=== PATIENT | male | born 1965 | race Caucasian/White ===

== ENCOUNTER 2017-05-13 11:25 | Outpatient (RCR) | payer OTHER ==
[2017-05-06 12:10] VITALS: BP 145/93
[2017-05-07 14:29] VITALS: BP 144/96
[2017-05-07 14:39] LABS: PLATELET COUNT, AUTOMATED 215 K/uL (150-450)
--- NOTE | 2017-05-07 18:50 | ONCOLOGY CONSULTATION ---
EVENT DATE: May 06, 2017 REFERRING PHYSICIAN Imelda Bauer MD REASON FOR CONSULTATION Evaluation and management of erythrocytosis in a patient on testosterone supplementation. HISTORY OF PRESENT ILLNESS Patient is a 52-year-old male who has a history of low testosterone level on testosterone supplement, hypothyroidism, sleep apnea and squamous cell carcinoma. Patient was followed by Dr. Bauer and the patient was found to have high H and H. His CBC showed hemoglobin of 18.8 and hematocrit of 56.1. Patient was donating blood in the past and was found to have rising H and H despite the fact he has phlebotomy, and for this reason the patient was referred for evaluation and management. PAST MEDICAL HISTORY 1. Sleep apnea. 2. Low testosterone level. 3. Hypothyroidism. 4. Squamous cell carcinoma. PAST SURGICAL HISTORY 1. Back surgery in 1999. 2. Tonsillectomy as a child. FAMILY HISTORY Mother with glioblastoma multiforme. SOCIAL HISTORY Patient is with two sons. He works as a real estate salesperson. He drinks about four to five drinks per week, but denies any abuse of tobacco or illicit drugs. CURRENT MEDICATIONS 1. Levothyroxine 88 mcg daily. 2. Wellbutrin XL 150 mg daily. 3. Paxil 10 mg daily. 4. Aspirin 81 mg daily. 5. [place]-3 500 mg capsule 1000 mg daily. 6. Multivitamin one tablet daily. 7. Vitamin D3 2000 units daily. 8. Magnesium oxide 400 mg daily. 9. Co-Q10 100 mg daily. 10. Ranitidine 150 mg twice daily. 11. AndroGel pump 20.25 mg per actuation transdermal gel four pumps once daily. ALLERGIES No known drug allergies. REVIEW OF SYSTEMS CONSTITUTIONAL: No appetite or weight change. No fever, chills or sweating. No recent infection. HEENT: Ears: No tinnitus or hearing problem. Nose: No nasal discharge or epistaxis. Throat: No sore throat or mouth ulcers. Eyes: No diplopia or visual changes. RESPIRATORY: No shortness of breath. No cough, expectoration or hemoptysis. CARDIOVASCULAR: No chest pain, orthopnea, or paroxysmal nocturnal dyspnea (PND) . No edema. No palpitations. GASTROINTESTINAL: No nausea or vomiting. No diarrhea or constipation. No change in bowel movements. No heartburn or swallowing difficulties. No abdominal pain. No jaundice. No hematemesis, melena or rectal bleeding. GENITOURINARY: No hematuria or dysuria. MUSCULOSKELETAL: No pain in the muscles, joints or bones. NEUROLOGICAL: No tingling or numbness in the hands or feet. No headaches or convulsions. HEMATOLOGIC/LYMPHATIC: No bleeding or easy bruising. No weakness or fatigue. No enlarged lymph nodes. SKIN: No skin rash or lumps. PSYCHIATRIC: No anxiety or depression. PHYSICAL EXAMINATION GENERAL: Looks stable. Well-developed, well-nourished, and in no acute distress. VITAL SIGNS: Blood pressure 145/93, pulse 72 per minute, respirations 16 per minute, temperature 98.2, pulse ox 92% on room air. HEENT: Head: Atraumatic. No sinus tenderness to palpation. Eyes: No icterus or conjunctivitis. Mouth and throat: No oral thrush or mucositis. NECK: Supple. No cervical or supraclavicular lymphadenopathy. LUNGS: Clear to auscultation and percussion bilaterally. HEART: Regular rate and rhythm. No gallops, murmurs, clicks or rubs. ABDOMEN: Soft and lax. No tenderness. No hepatosplenomegaly. No masses. EXTREMITIES: No cyanosis, clubbing or edema. LYMPHATICS: No peripheral lymphadenopathy. NEUROLOGICAL: Conscious, alert and oriented times three. No focal motor or sensory deficits. PSYCHIATRIC: Mood and affect appear normal. SKIN: No skin rash, bruise or purpuric eruption. ASSESSMENT 1. Erythrocytosis could be primary due to polycythemia vera versus secondary due to hypoxemia of any cause or high ferritin due to ferritin producing tumors like hepatoma. From his history, patient could have secondary erythrocytosis due to the testosterone supplement, and as per patient the testosterone supplement makes a difference with improving his energy and stamina. I am planning to check his CBC, JAK2 mutation analysis and and erythropoietin level. If the JAK2 mutation will come back negative then testosterone supplement is most probably the underlining cause, together with the sleep apnea which the patient has also. If this is the case, I am planning to do a phlebotomy whenever his hematocrit is above 55%, but if he will prove to have polycythemia vera then we will do the phlebotomy if the hematocrit is above 45%. As the patient cannot stop testosterone supplement we will do the phlebotomy whenever it is needed, if the hematocrit is above 55%. We will check his blood today. I will see him in a week and we will decide about further management at that time. 2. Low testosterone on testosterone supplement. 3. Hypothyroidism on thyroid supplement. 4. Sleep apnea, on oxygen. PLAN 1. CBC. 2. Erythropoietin level. 3. JAK2 mutation analysis. 4. Patient to return in one week for further evaluation and management. 5. Consider phlebotomy if hematocrit above 55% and secondary erythrocytosis, or above 45% and polycythemia vera. 6. Continue baby aspirin 81 mg daily. 7. Patient to contact us for any new concern or complaints. TAMERAD
[~2017-05-13 11:25] MED LIST: AMOX-559 PO; ASPI-1471 PO; BUPR-472 PO; CHOL200022 PO; LEVO75TA73 PO; LOR05 PO; MAGN400C PO; MILK500C2 PO; MULT-885 PO; NO MEDS; OMEG500C5 PO; PARO-242 PO; RANI-318 PO; UBID100C9 PO; VITA-324 PO; asprin PO
[2017-05-13 11:30] VITALS: BP 123/97
[2017-05-13 11:43] LABS: PLATELET COUNT, AUTOMATED 212 K/uL (150-450)
== END 2017-06-11 09:02 | disposition home or self-care (01) ==
LOC: SPU 11:25
PROVIDERS: ATTEND Internal Medicine Hematology
DX: D75.1 Secondary polycythemia (principal); E29.1 Testicular hypofunction; E03.9 Hypothyroidism, unspecified; G47.30 Sleep apnea, unspecified; Z79.82 Long term (current) use of aspirin; Z79.899 Other long term (current) drug therapy
CPT/HCPCS: 36415; 81270; 81403; 82668; 85025; 99202

== ENCOUNTER 2017-10-01 13:55 | Outpatient (RCR) | payer OTHER ==
[2017-08-20 12:35] VITALS: BP 137/88
[2017-08-20 12:50] LABS: PLATELET COUNT, AUTOMATED 214 K/uL (150-450)
--- NOTE | 2017-08-20 17:30 | ONCOLOGY FOLLOW UP NOTE ---
EVENT DATE: August 20, 2017 DIAGNOSES 1. 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 2. Hypothyroidism. 3. Sleep apnea. CHIEF COMPLAINT Patient is here today for followup of his erythrocytosis. HEMATOLOGY HISTORY Patient is a 52-year-old male who has a history of low testosterone level on testosterone supplement, hypothyroidism, sleep apnea and squamous cell carcinoma. Patient was followed by Dr. Bauer and the patient was found to have high H and H. His CBC showed hemoglobin of 18.8 and hematocrit of 56.1. Patient was donating blood in the past and was found to have rising H and H despite the fact he has phlebotomy, and for this reason the patient was referred for evaluation and management. JAK2 mutation analysis for V617F mutation and Exon 12 mutation came back negative. Erythropoietin level was normal at 20, consistent with secondary rather than primary polycythemia. HISTORY OF PRESENT ILLNESS Patient is here today for followup of his secondary erythrocytosis. He is doing very well currently and he is totally asymptomatic. PAST MEDICAL HISTORY 1. Sleep apnea. 2. Low testosterone level. 3. Hypothyroidism. 4. Squamous cell carcinoma. PAST SURGICAL HISTORY 1. Back surgery in 1999. 2. Tonsillectomy as a child. FAMILY HISTORY Mother with glioblastoma multiforme. SOCIAL HISTORY Patient is with two sons. He works as a commercial real estate manager. He drinks about four to five drinks per week, but denies any abuse of tobacco or illicit drugs. CURRENT MEDICATIONS 1. Levothyroxine 88 mcg daily. 2. Wellbutrin XL 150 mg daily. 3. Paxil 10 mg daily. 4. Aspirin 81 mg daily. 5. [place]-3 500 mg capsule 1000 mg daily. 6. Multivitamin one tablet daily. 7. Vitamin D3 2000 units daily. 8. Magnesium oxide 400 mg daily. 9. Co-Q10 100 mg daily. 10. Ranitidine 150 mg twice daily. 11. AndroGel pump 20.25 mg per actuation transdermal gel four pumps once daily. ALLERGIES No known drug allergies. REVIEW OF SYSTEMS CONSTITUTIONAL: No appetite or weight change. No fever, chills or sweating. No recent infection. HEENT: Ears: No tinnitus or hearing problem. Nose: No nasal discharge or epistaxis. Throat: No sore throat or mouth ulcers. Eyes: No diplopia or visual changes. RESPIRATORY: No shortness of breath. No cough, expectoration or hemoptysis. CARDIOVASCULAR: No chest pain, orthopnea, or paroxysmal nocturnal dyspnea (PND) . No edema. No palpitations. GASTROINTESTINAL: No nausea or vomiting. No diarrhea or constipation. No change in bowel movements. No heartburn or swallowing difficulties. No abdominal pain. No jaundice. No hematemesis, melena or rectal bleeding. GENITOURINARY: No hematuria or dysuria. MUSCULOSKELETAL: No pain in the muscles, joints or bones. NEUROLOGICAL: No tingling or numbness in the hands or feet. No headaches or convulsions. HEMATOLOGIC/LYMPHATIC: No bleeding or easy bruising. No weakness or fatigue. No enlarged lymph nodes. SKIN: No skin rash or lumps. PSYCHIATRIC: No anxiety or depression. PHYSICAL EXAMINATION GENERAL: Looks stable. Well-developed, well-nourished, and in no acute distress. VITAL SIGNS: Blood pressure 137/88, pulse 78 per minute, respirations 16 per minute, temperature 98.2, pulse ox 92% on room air. HEENT: Head: Atraumatic. No sinus tenderness to palpation. Eyes: No icterus or conjunctivitis. Mouth and throat: No oral thrush or mucositis. NECK: Supple. No cervical or supraclavicular lymphadenopathy. LUNGS: Clear to auscultation and percussion bilaterally. HEART: Regular rate and rhythm. No gallops, murmurs, clicks or rubs. ABDOMEN: Soft and lax. No tenderness. No hepatosplenomegaly. No masses. EXTREMITIES: No cyanosis, clubbing or edema. LYMPHATICS: No peripheral lymphadenopathy. NEUROLOGICAL: Conscious, alert and oriented times three. No focal motor or sensory deficits. PSYCHIATRIC: Mood and affect appear normal. SKIN: No skin rash, bruise or purpuric eruption. DIAGNOSTIC DATA JAK2 mutation for V617F and Exon 12 mutations came back negative. Erythropoietin level was 20. CBC showed white count 4.5, hemoglobin 17.7, hematocrit 52.2, platelets 212,000. His CBC for today is pending. ASSESSMENT 1. Erythrocytosis is secondary in nature given that JAK2 mutation for V617F mutation and Exon 12 mutation came back negative. His erythropoietin level was also normal at 20. Those results are consistent with secondary rather than primary polycythemia, with his testosterone supplement the most underlying cause for his erythrocytosis. I am planning to continue followup. I will check his blood count every six weeks, and I will phlebotomize 500 mL of blood if his hematocrit is above 55%. I am planning to see him again in three months from now with CBC. 2. Low testosterone on testosterone supplement. 3. Hypothyroidism on thyroid supplement. 4. Sleep apnea, on oxygen. PLAN 1. Continue followup. 2. Patient to return in three months with CBC. 3. Check CBC every six weeks. 4. Consider phlebotomy if hematocrit above 55%. 5. Patient to contact us for any new concerns or complaints. YULIA
[~2017-10-01 13:55] MED LIST changes: +CHOL200018 PO; -CHOL200022 PO
[2017-10-01 14:35] LABS: PLATELET COUNT, AUTOMATED 222 K/uL (150-450)
[2017-10-01 14:55] VITALS: BP 144/106
== END 2017-11-15 ==
LOC: SPU 13:55
PROVIDERS: ATTEND Internal Medicine Hematology
DX: D75.1 Secondary polycythemia (principal); E29.1 Testicular hypofunction; E03.9 Hypothyroidism, unspecified; G47.30 Sleep apnea, unspecified; Z79.82 Long term (current) use of aspirin; Z79.899 Other long term (current) drug therapy
CPT/HCPCS: 36415; 85025; 99212

== ENCOUNTER → 2017-10-07 | Outpatient (CLI) | payer OTHER ==
[~2017-10-07] MED LIST changes: -CHOL200018 PO; +CHOL200022 PO
--- NOTE | 2017-10-07 14:17 | RADIOLOGY IMAGING REPORT ---
FACILITY: [facility] - [place] PATIENT NAME: Cosme Watson : 1965 MR: [id number] V: [id number] EXAM DATE: ORDERING PHYSICIAN: CARLINE MOREJON TECHNOLOGIST: Location: [facility] [place] Patient: Cosme Watson : 1965 Visit/Account:[id number] Date of Sevice: 10/07/2017 EXAMINATION: Ultrasound thyroid HISTORY: Hypothyroidism, thyroid cyst. COMPARISON: Thyroid ultrasound from 03/12/2016. FINDINGS: Thyroid size: Right lobe: 4.2 x 1.3 x 1.5 cm Left lobe: 3.6 x 1.2 x 1.6 cm Isthmus: 0.3 cm Thyroid heterogeneity: Mildly heterogeneous parenchyma. Thyroid vascularity: Normal. Thyroid nodules: Right lobe: * A subcentimeter area measured as a nodule does not appear to be a discrete nodule in both planes. This appears to be mildly heterogeneous parenchyma. Left lobe: * None discrete. Isthmus: * None discrete. Additional findings: None. IMPRESSION: 1. Mildly heterogeneous thyroid could be due to chronic thyroiditis. 2. No discrete thyroid nodule. REFERENCE: 2015 [place] [employer] Management Guidelines for Adult Patients with Thyroid Nodules and D ifferentiated Thyroid Cancer: The [place] [employer] Guidelines Task Force on Thyroid Nodul es and Differentiated Thyroid Cancer. SONOGRAPHIC PATTERNS: * Benign: Purely cystic nodules (no solid component); estimated risk of malignancy <1 percent; no bi opsy recommended. * Very Low Suspicion: Spongiform or partially cystic nodules without any of the sonographic features described in low, intermediate, or high suspicion patterns; estimated risk of malignancy <3 percent; consider FNA at > 2 cm (Observation without FNA is also a reasonable option). * Low Suspicion: Isoechoic or hyperechoic solid nodule, or partially cystic nodule with eccentric so lid areas, without microcalcification, irregular margin or ETE (extra-thyroidal extension), or taller than wide shape; estimated risk of malignancy 5-10 percent; recommend FNA at >1.5 cm. * Intermediate Suspicion: Hypoechoic solid nodule with smooth margins without microcalcifications, E TE (extra-thyroidal extension), or taller than wide shape; estimated risk of malignancy 10-20 percent ; recommend FNA at > 1 cm. * High Suspicion: Solid hypoechoic nodule or solid hypoechoic component of a partially cystic nodule with one or more of the following features: irregular margins (infiltrative, microlobulated), microc alcifications, taller than wide shape, rim calcifications with small extrusive soft tissue component, evidence of ETE (extra-thyroidal extension); estimated risk of malignancy >70-90 percent; recommend FNA at > 1 cm. NOTES: * Although a sonographically suspicious subcentimeter thyroid nodule without evidence of extrathyroi dottie extension or sonographically suspicious lymph nodes may be observed with close sonographic follow -up rather than pursuing immediate FNA, patient age and preference may modify decision-making. * A > 50% interval increase in nodule volume and/or development of new suspicious sonographic featur es are felt to be a valid reasons for potential re-aspiration of a nodule previously shown to have be nign FNA cytology. Report Dictated By: Nita Chavez MD at 10/07/2017 2:11 PM Report E-Signed By: Nita Chavez MD at 10/07/2017 2:13 PM WSN:[id number]
== END ==
LOC: US 01:09
PROVIDERS: ATTEND Family Medicine
DX: E05.00 Thyrotoxicosis with diffuse goiter without thyrotoxic crisis or storm (principal)
CPT/HCPCS: 76536

== ENCOUNTER 2018-02-03 08:50 | Outpatient (RCR) | payer OTHER ==
[2017-12-10 12:36] VITALS: BP 143/103
[2017-12-10 12:55] LABS: PLATELET COUNT, AUTOMATED 243 K/uL (150-450)
--- NOTE | 2017-12-10 23:05 | ONCOLOGY FOLLOW UP NOTE ---
EVENT DATE: December 10, 2017 DIAGNOSES 1. 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 2. Hypothyroidism. 3. Sleep apnea. CHIEF COMPLAINT Patient is here today for followup of his erythrocytosis. HEMATOLOGY HISTORY Patient is a 52-year-old male who has a history of low testosterone level, on testosterone supplement, hypothyroidism, sleep apnea, and squamous cell carcinoma. Patient was followed by Dr. Bauer, and the patient was found to have high H and H. His CBC showed hemoglobin of 18.8 and hematocrit of 56.1. Patient was donating blood in the past and was found to have rising H and H despite the fact he had phlebotomy, and for this reason, the patient was referred for evaluation and management. JAK2 mutation analysis for V617F mutation and exon 12 mutation came back negative. Erythropoietin level was normal at 20, consistent with secondary rather than primary polycythemia. HISTORY OF PRESENT ILLNESS Patient is here today for followup of his secondary erythrocytosis due to testosterone supplement. He is doing fine currently, and he is totally asymptomatic. PAST MEDICAL HISTORY 1. Sleep apnea. 2. Low testosterone level. 3. Hypothyroidism. 4. Squamous cell carcinoma. PAST SURGICAL HISTORY 1. Back surgery in 1999. 2. Tonsillectomy as a child. FAMILY HISTORY Mother with glioblastoma multiforme. SOCIAL HISTORY Patient is with two sons. He works as a real estate executive assistant. He drinks about four to five drinks per week, but denies any abuse of tobacco or illicit drugs. CURRENT MEDICATIONS 1. Levothyroxine 88 mcg daily. 2. Wellbutrin XL 150 mg daily. 3. Paxil 10 mg daily. 4. Aspirin 81 mg daily. 5. [place]-3, 500 mg capsule, 1000 mg daily. 6. Multivitamin one tablet daily. 7. Vitamin D3, 2000 units daily. 8. Magnesium oxide 400 mg daily. 9. Co-Q10, 100 mg daily. 10. Ranitidine 150 mg twice daily. 11. AndroGel pump 20.25 mg per actuation transdermal gel, four pumps once daily. ALLERGIES No known drug allergies. REVIEW OF SYSTEMS CONSTITUTIONAL: No appetite or weight change. No fever, chills, or sweating. No recent infection. HEENT: Ears: No tinnitus or hearing problem. Nose: No nasal discharge or epistaxis. Throat: No sore throat or mouth ulcers. Eyes: No diplopia or visual changes. RESPIRATORY: No shortness of breath. No cough, expectoration, or hemoptysis. CARDIOVASCULAR: No chest pain, orthopnea, or paroxysmal nocturnal dyspnea (PND). No edema. No palpitations. GASTROINTESTINAL: No nausea or vomiting. No diarrhea or constipation. No change in bowel movements. No heartburn or swallowing difficulties. No abdominal pain. No jaundice. No hematemesis, melena, or rectal bleeding. GENITOURINARY: No hematuria or dysuria. MUSCULOSKELETAL: No pain in the muscles, joints, or bones. NEUROLOGICAL: No tingling or numbness in the hands or feet. No headaches or convulsions. HEMATOLOGIC/LYMPHATIC: No bleeding or easy bruising. No weakness or fatigue. No enlarged lymph nodes. SKIN: No skin rash or lumps. PSYCHIATRIC: No anxiety or depression. PHYSICAL EXAMINATION GENERAL: Looks stable. Well developed, well nourished, and in no acute distress. VITAL SIGNS: Blood pressure 143/103, pulse 73 per minute, respirations 16 per minute, temperature 98.1, pulse ox 91% on room air. HEENT: Head: Atraumatic. No sinus tenderness to palpation. Eyes: No icterus or conjunctivitis. Mouth and Throat: No oral thrush or mucositis. NECK: Supple. No cervical or supraclavicular lymphadenopathy. LUNGS: Clear to auscultation and percussion bilaterally. HEART: Regular rate and rhythm. No gallops, murmurs, clicks, or rubs. ABDOMEN: Soft and lax. No tenderness. No hepatosplenomegaly. No masses. EXTREMITIES: No cyanosis, clubbing, or edema. LYMPHATICS: No peripheral lymphadenopathy. NEUROLOGICAL: Conscious, alert, and oriented times three. No focal motor or sensory deficits. PSYCHIATRIC: Mood and affect appear normal. SKIN: No skin rash, bruise, or purpuric eruption. DIAGNOSTIC DATA CBC showed white count 5000, hemoglobin 17.6, hematocrit 53.5, platelet count 243,000. ASSESSMENT 1. Erythrocytosis, secondary in nature given that JAK2 mutation for V617F mutation and the exon 12 mutation came back negative. His erythropoietin level was also normal at 20. His erythrocytosis is most probably due to testosterone supplement. He had his last phlebotomy about two months ago, and his current hematocrit is 53.5%. I am planning to proceed with phlebotomy for hematocrit above 55%. I am planning to repeat his CBC very two months, and I will see him in four months from now. 2. Low testosterone, on testosterone supplement. 3. Hypothyroidism, on thyroid supplement. 4. Sleep apnea, on oxygen. PLAN 1. Continue followup. 2. Patient to return in four months with CBC. 3. Check CBC every two months. 4. Phlebotomize 500 mL of blood if hematocrit above 55%. 5. Patient to contact us for any new concerns or complaints. YULIA
[~2018-02-03 08:50] MED LIST changes: +CHOL200018 PO; -CHOL200022 PO; +INFLUENZA VIRUS VAC 0.5ML SYR IM ONLY ONE
[2018-02-03 08:57] VITALS: BP 167/105
[2018-02-03 09:10] LABS: PLATELET COUNT, AUTOMATED 203 K/uL (150-450)
== END 2018-02-17 ==
LOC: SPU 08:50
PROVIDERS: ATTEND Internal Medicine Hematology
DX: D75.1 Secondary polycythemia (principal); E03.9 Hypothyroidism, unspecified; G47.30 Sleep apnea, unspecified; Z79.82 Long term (current) use of aspirin; Z79.899 Other long term (current) drug therapy; E29.1 Testicular hypofunction; Z23 Encounter for immunization
CPT/HCPCS: 36415; 85025; 90471; 90674; 99212

== ENCOUNTER → 2018-03-17 | Outpatient (CLI) | payer OTHER ==
[~2018-03-17] MED LIST changes: -INFLUENZA VIRUS VAC 0.5ML SYR IM ONLY ONE
== END ==
LOC: LAB 08:43
PROVIDERS: ATTEND Urology
DX: R97.20 Elevated prostate specific antigen [PSA] (principal)
CPT/HCPCS: 36415; 84154

== ENCOUNTER 2018-03-30 15:42 | Outpatient (RCR) | payer OTHER | END 2018-03-31 17:31 | disposition home or self-care (01) | LOC: SPU 15:42 | PROVIDERS: ATTEND Internal Medicine Hematology | DX: D75.1 Secondary polycythemia (principal); E03.9 Hypothyroidism, unspecified; G47.30 Sleep apnea, unspecified; Z79.82 Long term (current) use of aspirin; Z79.899 Other long term (current) drug therapy; E29.1 Testicular hypofunction; Z23 Encounter for immunization ==

== ENCOUNTER 2018-04-07 12:37 | Outpatient (RCR) | payer OTHER ==
[2018-04-01 09:04] VITALS: BP 159/111
[2018-04-01 09:21] LABS: PLATELET COUNT, AUTOMATED 202 K/uL (150-450)
[2018-04-07 12:50] VITALS: BP 149/109
[2018-04-07 13:06] LABS: PLATELET COUNT, AUTOMATED 214 K/uL (150-450)
[2018-04-07 13:40] VITALS: BP 138/111
--- NOTE | 2018-04-07 14:19 | [facility] ONCOLOGY NOTE ---
EVENT DATE: April 07, 2018 DIAGNOSES 1. 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 2. Hypothyroidism. 3. Sleep apnea. CHIEF COMPLAINT Patient is here today for followup of his secondary erythrocytosis. HEMATOLOGY HISTORY Patient is a 53-year-old male who has a history of low testosterone level, on testosterone supplement, hypothyroidism, sleep apnea, and squamous cell carcinoma. Patient was followed by Dr. Bauer, and the patient was found to have high H and H. His CBC showed hemoglobin of 18.8 and hematocrit of 56.1. Patient was donating blood in the past and was found to have rising H and H despite the fact he had phlebotomy, and for this reason, the patient was referred for evaluation and management. JAK2 mutation analysis for V617F mutation and exon 12 mutation came back negative. Erythropoietin level was normal at 20, consistent with secondary rather than primary polycythemia. HISTORY OF PRESENT ILLNESS Patient is here today for followup of his secondary erythrocytosis due to testosterone supplement. He is doing fine currently, and he is totally asymptomatic, but patient was found to have high blood pressure today and was advised to see his primary care provider for that. PAST MEDICAL HISTORY 1. Sleep apnea. 2. Low testosterone level. 3. Hypothyroidism. 4. Squamous cell carcinoma. PAST SURGICAL HISTORY 1. Back surgery in 1999. 2. Tonsillectomy as a child. FAMILY HISTORY Mother with glioblastoma multiforme. SOCIAL HISTORY Patient is with two sons. He works as a real estate leasing agent. He drinks about four to five drinks per week, but denies any abuse of tobacco or illicit drugs. CURRENT MEDICATIONS 1. Levothyroxine 88 mcg daily. 2. Wellbutrin XL 150 mg daily. 3. Paxil 10 mg daily. 4. Aspirin 81 mg daily. 5. [place]-3, 500 mg capsule, 1000 mg daily. 6. Multivitamin one tablet daily. 7. Vitamin D3, 2000 units daily. 8. Magnesium oxide 400 mg daily. 9. Co-Q10, 100 mg daily. 10. Ranitidine 150 mg twice daily. 11. AndroGel pump 20.25 mg per actuation transdermal gel, four pumps once daily. ALLERGIES No known drug allergies. REVIEW OF SYSTEMS CONSTITUTIONAL: No appetite or weight change. No fever, chills, or sweating. No recent infection. HEENT: Ears: No tinnitus or hearing problem. Nose: No nasal discharge or epistaxis. Throat: No sore throat or mouth ulcers. Eyes: No diplopia or visual changes. RESPIRATORY: No shortness of breath. No cough, expectoration, or hemoptysis. CARDIOVASCULAR: No chest pain, orthopnea, or paroxysmal nocturnal dyspnea (PND). No edema. No palpitations. GASTROINTESTINAL: No nausea or vomiting. No diarrhea or constipation. No change in bowel movements. No heartburn or swallowing difficulties. No abdominal pain. No jaundice. No hematemesis, melena, or rectal bleeding. GENITOURINARY: No hematuria or dysuria. MUSCULOSKELETAL: No pain in the muscles, joints, or bones. NEUROLOGICAL: No tingling or numbness in the hands or feet. No headaches or convulsions. HEMATOLOGIC/LYMPHATIC: No bleeding or easy bruising. No weakness or fatigue. No enlarged lymph nodes. SKIN: No skin rash or lumps. PSYCHIATRIC: No anxiety or depression. PHYSICAL EXAMINATION GENERAL: Looks stable. Well developed, well nourished, and in no acute distress. VITAL SIGNS: Blood pressure 149/109, pulse 68 per minute, respirations 16 per minute, temperature 99, pulse ox 94% on room air. HEENT: Head: Atraumatic. No sinus tenderness to palpation. Eyes: No icterus or conjunctivitis. Mouth and Throat: No oral thrush or mucositis. NECK: Supple. No cervical or supraclavicular lymphadenopathy. LUNGS: Clear to auscultation and percussion bilaterally. HEART: Regular rate and rhythm. No gallops, murmurs, clicks, or rubs. ABDOMEN: Soft and lax. No tenderness. No hepatosplenomegaly. No masses. EXTREMITIES: No cyanosis, clubbing, or edema. LYMPHATICS: No peripheral lymphadenopathy. NEUROLOGICAL: Conscious, alert, and oriented times three. No focal motor or sensory deficits. PSYCHIATRIC: Mood and affect appear normal. SKIN: No skin rash, bruise, or purpuric eruption. DIAGNOSTIC DATA CBC showed white count 5.5, hemoglobin 18.1, hematocrit 55.5%, platelet count 214,000. ASSESSMENT 1. Erythrocytosis, secondary in nature given that his JAK2 mutation for V617F mutation and the exon 12 mutation came back negative. Erythropoietin level was also normal at 20. His erythrocytosis is thought to be due to his testosterone supplement. His current hematocrit is 55.5%, and the patient will have a phlebotomy for that. I am planning to see him in six months, but I will check his blood count in three months from now. 2. Low testosterone, on testosterone supplement. 3. Hypothyroidism, on thyroid supplement. 4. Sleep apnea, on oxygen. PLAN 1. Continue followup. 2. Patient to return in six months with CBC. 3. Check CBC every three months. 4. Phlebotomize 500 mL of blood if hematocrit is at or above 55%. 5. Patient to contact us for any new concerns or complaints. YULIA
== END 2018-06-30 ==
LOC: SPU 12:37
PROVIDERS: ATTEND Internal Medicine Hematology
DX: D75.1 Secondary polycythemia (principal); E03.9 Hypothyroidism, unspecified; G47.30 Sleep apnea, unspecified; Z79.899 Other long term (current) drug therapy; E29.1 Testicular hypofunction
CPT/HCPCS: 36415; 85025; 99195; 99212

== ENCOUNTER 2018-06-05 18:25 | Emergency (ER) | payer OTHER ==
[2018-06-05 18:35] VITALS: BP 147/96
--- NOTE | 2018-06-05 18:44 | ER Report ---
History and Physical Time Seen By MD: 18:30 HPI/ROS CHIEF COMPLAINT: Left thumb lac HISTORY OF PRESENT ILLNESS: Pt was cutting his easter ham and accidentally hit his left thumb at pip joint. 1cm laceration Pt tried pressure bandage but could not stop the bleeding. Pt tried surgical glue at home but also could not stop the bleeding. Came to the ED for closure. PT has full range of motion. No numbness. PT is right handed REVIEW OF SYSTEMS: Constitutional: No fever, no chills. Eyes: No discharge. ENT: No sore throat. Cardiovascular: No chest pain, no palpitations. Respiratory: No cough, no shortness of breath. Gastrointestinal: No abdominal pain, no vomiting. Genitourinary: No hematuria. Musculoskeletal: No back pain. Skin: No rashes + finger laceration Neurological: No headache. Allergies: Coded Allergies: No Known Drug Allergies (Verified , 06/05/18) Home Meds Reported Medications Levothyroxine Sodium (LEVOTHYROXINE SODIUM) 75 Mcg Tablet, 88 MCG PO QDAY, TAB 04/27/16 Bupropion Hcl (WELLBUTRIN XL) 150 Mg Tab.er.24h, 150 MG PO QDAY, TAB 04/27/16 Paroxetine Hcl (PAXIL) 10 Mg Tablet, 10 MG PO QDAY 04/27/16 Aspirin (ASPIR 81) 81 Mg Tablet.dr, 81 MG PO HS, TAB 01/25/14 [place]-3 Fatty Acids (FISH OIL) 500 Mg Capsule.dr, 1000 MG PO DAILY 09/20/13 Multivitamin (DAILY VITAMIN) 1 Each Tablet, 1 EACH PO DAILY 09/20/13 Cholecalciferol (Vitamin D3) (VITAMIN D) 2,000 Unit Tablet, 2000 UNIT PO DAILY 09/20/13 Magnesium Oxide (MAGNESIUM) 400 Mg Capsule, 400 MG PO DAILY, CAPSULE 09/20/13 Ubidecarenone (CO Q-10) 100 Mg Capsule, 100 MG PO DAILY, CAPSULE 09/20/13 Ranitidine Hcl (RANITIDINE HCL) 150 Mg Tablet, 150 MG PO BID 09/20/13 Past Medical/Surgical History Pmhx: polycythemia, Sleep apnea, Low testosterone level, Hypothyroidism, Squamous cell carcinoma. Pshx: tonsilectomy Hx Smoking: No Smoking Status: Never Smoker Hx Alcohol Use: Yes (4 drinks per a week) Constitutional Vital Sign - Last 24 Hours 06/05/18 18:35 Temp 99.1 Pulse 90 Resp 16 B/P (MAP) 147/96 Pulse Ox 91 O2 Delivery Room Air Physical Exam General Appearance: The patient is alert, has no immediate need for airway pr otection and no signs of toxicity. Respiratory: There are no retractions, lungs are clear to auscultation. Cardiovascular: Regular rate and rhythm. pulses are equal and symmetrical Neurological: Cranial nerves II-XII grossly intact, no sensory or motor loss Skin: Warm and dry,+ 1cm laceration on left thumb volar aspect at pip joint Musculoskeletal: Neck is supple non tender, no vertebral tenderness Extremities are nontender, nonswollen and have full range of motion. DIFFERENTIAL DIAGNOSIS: After history and physical exam differential diagnosis was considered for wound closure, tendon damage, nerve damage Medical Decision Making ED Course/Re-evaluation ED Course 06/05/2018 6:52:02 pm Procedure: Laceration repair. Verbal consent was obtained from the patient. The1cm laceration on the Left thumb was anesthetized in the usual fashion. The wound was scrubbed, draped and explored to its base with a gloved finger. There were no deep structures involved. No tendon injury was identified. The wound was repaired with 5.0 ethlon 4 intermittent sutures. The procedure was performed by myself. Spoke with pt at length for risk of infection. Tetnus shot given. Bacitrain and sterile bandage applied. Decision to Disposition Date: Jun 05, 2018 Decision to Disposition Time: 18:48 Depart Departure Latest Vital Signs Vital Signs Date Time Temp Pulse Resp B/P (MAP) Pulse Ox O2 Delivery O2 Flow Rate FiO2 06/05/18 18:35 99.1 90 16 147/96 91 Room Air Impression: Primary Impression: Thumb laceration Condition: Improved Disposition: HOME OR SELF-CARE Referrals: CARLINE MOREJON DO (PCP) Patient Instructions: Finger Laceration (ED) Additional Instructions: Suture removal in 10 days. Neosporin/bacitracin to wound twice a day. Keep clean and covered. Problem Qualifiers Primary Impression: Thumb laceration Encounter type: initial encounter Damage to nail status: without damage Foreign body presence: without foreign body Laterality: left Qualified Codes: S61.012A - Laceration without foreign body of left thumb without damage to nail, initial encounter TRACEY CANAS DO Jun 05, 2018 18:44
[2018-06-05] MEDS ORDERED: DIPHTH/TETANUS/ACEL. PERTUSSIS IM ONLY ONE (18:45)
== END 2018-06-05 18:55 | disposition home or self-care (01) ==
LOC: ER 18:46
DX: S61.012A Laceration without foreign body of left thumb without damage to nail, initial encounter (principal)
CPT/HCPCS: 90471; 90715; 99283

== ENCOUNTER → 2018-06-20 | Outpatient (CLI) | payer OTHER | LOC: LAB 09:07 | PROVIDERS: ATTEND Urology | DX: R97.20 Elevated prostate specific antigen [PSA] (principal) | CPT/HCPCS: 36415; 84153; 84154 ==

== ENCOUNTER 2018-07-05 13:00 | Outpatient (RCR) | payer OTHER ==
[2018-07-05 13:15] LABS: PLATELET COUNT, AUTOMATED 246 K/uL (150-450)
[2018-10-06] MEDS ORDERED: SERT-181 PO (08:40)
== END 2018-10-02 ==
LOC: SPU 13:00
PROVIDERS: ATTEND Internal Medicine Hematology
DX: D58.2 Other hemoglobinopathies (principal)
CPT/HCPCS: 36415; 85025